=== PATIENT | male | born 1955 | race Caucasian/White ===

== ENCOUNTER → 2016-08-18 | Day surgery (SDC) | payer BC ==
[2016-08-04 14:03] VITALS: Ht 167.6 cm; Wt 140.9 kg
[~2016-08-18] VITALS: Ht 167.6 cm; Wt 140.9 kg
[~2016-08-18] MED LIST: ASPCH81X PO; ATEN-173 PO; CHOL100010 PO; LIDOCAINE HCL 2% 2 ML VIAL (20MG/ML) ONE; MULT-506 PO; PROPOFOL IV EMULSION 10 MG/ML 20 ML VIAL IV ONE; SIMV20TA2 PO; SODIUM CHLORIDE 0.9% 500ML 500 ML IV ONE
[2016-08-18 10:15] VITALS: TEMP 36.8
--- NOTE | 2016-08-18 10:31 | Endo History and Physical ---
History & Physical Date of Service: Aug 18, 2016. Chief Complaint: screening Referring Physician: Dr. Raymon Garcia History of Present Illness Screening colonoscopy average risk, prior hyperplastic polyp Past Surgical History Hx Cardiac Surgery: No Hx Internal Defibrillator: No Hx Pacemaker: No Hx Abdominal Surgery: No Hx of Implantable Prosthesis: No Hx Post-Op Nausea and Vomiting: No Hx Cancer Surgery: Yes (MOHS PROCEDURE ON NOSE, SCC ON LEFT FOOT GROWTH REMOVAL ) Hx Thoracic Surgery: No Hx Orthopedic: Yes (MULT DEBRIDEMENTS AND SKIN GRAFT/MUSCLE FLAP ON LFT LE, LEFT BKA) Hx Urinary Tract Surgery: No Family History None Social History Smoking Status: Former Smoker Hx Substance Use: No Hx Alcohol Use: No Allergies Coded Allergies: No Known Allergies (Verified , 08/04/16) Current Medications Reported Home Medications Medications Dose Route/Sig Max Daily Dose Days Date Category Vitamin D (Cholecalciferol) 1,000 Unit Tab 1 Tab PO QPM 08/04/16 Reported Multivitamin (Multivitamins) Tab 1 Tab PO QPM 08/04/16 Reported Aspirin Chewable (Aspirin) 81 Mg Chew 81 Mg PO QPM 08/04/16 Reported Zocor (Simvastatin) 20 Mg Tab 20 Mg PO QPM 08/04/16 Reported Tenormin (Atenolol) 25 Mg Tab 25 Mg PO HS 08/04/16 Reported Vital Signs Weight (Kilograms): 140.91 Height (Feet): 5 Height (Inches): 6 Date Time Temp Pulse Resp B/P Pulse Ox O2 Delivery O2 Flow Rate FiO2 08/18/16 10:15 36.8 70 20 191/90 97 Room Air Physical Exam General Appearance: WD/WN, no apparent distress, + obese Respiratory/Chest: Auscultation: breath sounds normal, no wheezing, no rales/crackles Cardiovascular: Heart Auscultation: RRR, no murmurs Abdomen: Inspection & Palpation: soft, no tenderness, guarding & rebound Assessment and Plan Colonoscopy today
--- NOTE | 2016-08-18 11:29 | GI REPORT ---
Procedure Date: 08/18/2016 11:00 AM Procedure: Colonoscopy Indications: Screening for colorectal malignant neoplasm Medicines: Monitored Anesthesia Care Complications: No immediate complications. Estimated blood loss: None. Estimated Blood Loss: Estimated blood loss: none. Procedure: Pre-Anesthesia Assessment: - Prior to the procedure, a History and Physical was performed, and patient medications, allergies and sensitivities were reviewed. The patient's tolerance of previous anesthesia was reviewed. - ASA Grade Assessment: III - A patient with severe systemic disease. After I obtained informed consent, the scope was passed under direct vision. Throughout the procedure, the patient's blood pressure, pulse, and oxygen saturations were monitored continuously. The scope was introduced through the anus and advanced to the cecum, identified by appendiceal orifice and ileocecal valve. The colonoscopy was performed with difficulty due to significant looping. Successful completion of the procedure was aided by changing the patient to a prone position. The patient tolerated the procedure well. The quality of the bowel preparation was adequate to identify polyps 6 mm and larger in size. The bowel preparation used was split dose MIralax. Findings: Multiple large-mouthed diverticula were found from sigmoid to ascending colon. Impression: - Diverticulosis from sigmoid to ascending colon. - No specimens collected. Recommendation: - Repeat colonoscopy in 5 years for screening purposes with a two day prep. Trav Augustin M.D. Trav Augustin MD 08/18/2016 11:29:23 AM This report has been signed electronically. Note Initiated On: 08/18/2016 11:00 AM I attest to the content of the Intraoperative Record and orders documented therein, exceptions below
--- NOTE | 2016-08-18 11:30 | Discharge Instructions ---
Endoscopy Patient Instructions Date / Procedure(s) Performed Aug 18, 2016. Colonoscopy Allergy Information Coded Allergies: No Known Allergies (Verified , 08/04/16) Discharge Date / Findings Aug 18, 2016. Diverticulosis. Medication Instructions Stopped Medication(s): stopped ASA 2/6 Restart Stopped Medication(s): Restart all medications today Provider Instructions Activity Restrictions - No exercising or heavy lifting for 24 hours. - Do not drink alcohol the day of the procedure. - Do not drive a car or operate machinery until the day after the procedure. - Do not make any important decisions or sign important papers in 24 hours after the procedure. Following Day: - Return to full activity which may include returning to work/school. Diet Start your diet with liquids and light foods (jello, soup, juice, toast). Then eat your usual diet if not nauseated. Treatment For Common After Affects For mild abdominal pain, bloating, or excessive gas: - Rest - Eat lightly - Lie on right side Follow-Up Information Follow-up with Dr. Raymon Garcia as scheduled Repeat colonoscopy in five years with extended preparation Anesthesia Information What You Should Know You have had a procedure that required some medicine to reduce anxiety and discomfort. This treatment is called moderate sedation. After receiving the treatment, you may be sleepy, but you will be able to breathe on your own. The effects of the treatment may last for several hours. Follow these instructions along with Activity/Diet recommendations noted above: * Do NOT do anything where dizziness or clumsiness would be dangerous. * Rest quietly at home today, then you can be up and about tomorrow. * Have a responsible person stay with you the rest of today. * You may have had an I.V. today. If so, you may take the dressing off later today. Recommendations Call your doctor if: * Trouble breathing * Continuous vomiting for more than 24 hours * Temperature above 101 degrees * Severe abdominal pain or bloating * Pain not relieved by pain medicine ordered * There is increased drainage or redness from any incision * A large amount of rectal bleeding greater than 2-3 tablespoons. (If you had a polyp/s removed or have hemorrhoids, a small amount of blood - from the rectum is to be expected.) * You have any unanswered questions or concerns. IN THE EVENT OF A SERIOUS EMERGENCY, GO TO THE NEAREST EMERGENCY ROOM Your discharge instructions were prepared by provider Trav Augustin. Patient Instructions Signature Page Jordin Soriano Patient (or Guardian) Signature/Date: I have read and understand the instructions given to me by my caregivers. Caregiver/RN/Doctor Signature/Date: The above-named patient and/or guardian has received patient instructions on this date. + Original Patient Signature Page (only) stays with chart. Please make copy for patient.
[2016-08-18 12:02] VITALS: BP 159/80; PULSE 55; O2SAT 97
--- NOTE | 2016-08-18 12:33 | Anesthesiology Progress Note ---
Anesthesia Post Op Note Date & Time Aug 18, 2016 at 12:34 Vital Signs Pain Intensity: 0 Vital Signs Past 12 Hours Date Time Temp Pulse Resp B/P Pulse Ox O2 Delivery O2 Flow Rate FiO2 08/18/16 12:02 55 20 159/80 97 Room Air 08/18/16 11:47 65 20 151/73 96 Room Air 08/18/16 11:32 77 20 134/74 96 Room Air 08/18/16 10:15 36.8 70 20 191/90 97 Room Air Notes Mental Status: alert / awake / arousable, participated in evaluation Pt Amnestic to Procedure: Yes Nausea / Vomiting: adequately controlled Pain: adequately controlled Airway Patency, RR, SpO2: stable & adequate BP & HR: stable & adequate Hydration State: stable & adequate Anesthetic Complications: no major complications apparent
== END | disposition home or self-care (01) ==
LOC: C.GI 09:51
PROVIDERS: ATTEND Internal Medicine Gastroenterology
DX: Z12.11 Encounter for screening for malignant neoplasm of colon (principal); K57.30 Diverticulosis of large intestine without perforation or abscess without bleeding; Z98.890 Other specified postprocedural states; Z87.891 Personal history of nicotine dependence; Z79.82 Long term (current) use of aspirin